=== PATIENT | female | born 1975 | race Two or more races ===

== ENCOUNTER 2017-08-10 15:29 | Emergency (ER) | payer BC, OTHER ==
[2017-08-10 15:34] VITALS: TEMP 98.3; BMI 21.7
--- NOTE | 2017-08-10 15:44 | PDOC ---
*Physical Exam - Vital Signs Last Vital Signs Temp Pulse Resp BP Pulse Ox 98.3 F 76 18 138/70 100 08/10/17 15:30 08/10/17 15:30 08/10/17 15:30 08/10/17 15:30 08/10/17 15:30 Medical Decision Making - Medical Decision Making 08/10/17 15:40 I have performed a brief in-person evaluation of this patient. The patient presents with a chief complaint of: rlq, nausea, and decreased appetite Pertinent physical exam findings: rlq pain, sent by dr. nguyen to r/o appendicitis I have ordered the following: ua, upreg, cbc, comp, lactic acid The patient will proceed to the ED for further evaluation. 08/10/17 15:43 *DC/Admit/Observation/Transfer Diagnosis at time of Disposition: Abdominal pain
[2017-08-10 17:27] LABS: BASOPHIL 0.6 % (0-2.0); EOSINOPHIL 0.9 % (0-4.5); MCH 29.3 pg (25.7-33.7); MCHC 33.5 g/dl (32.0-36.0); MEAN CELL VOLUME 87.6 fl (80-96); MEAN PLT VOLUME 10.8 fl (7.5-11.1); NEUTROPHILS 68.9 % (42.8-82.8); PLATELET COUNT 187 K/MM3 (134-434); RDW 12.5 % (11.6-15.6); WHITE BLOOD COUNT 7.3 K/mm3 (4.0-10.0)
[2017-08-10 17:29] LABS: URINE APPEARANCE CLEAR; URINE BILIRUBIN NEGATIVE (NEGATIVE); URINE BLOOD 1+ (NEGATIVE); URINE COLOR STRAW; URINE GLUCOSE (UA) NEGATIVE (NEGATIVE); URINE KETONE TRACE (NEGATIVE); URINE NITRITE NEGATIVE (NEGATIVE); URINE PROTEIN NEGATIVE (NEGATIVE); URINE UROBILINOGEN NEGATIVE mg/dL (0.2-1.0)
[2017-08-10 17:32] LABS: URINE HYALINE CAST 1 /lpf; URINE MUCUS RARE; URINE RBC <1 /hpf (0-3); URINE WBC 1 /hpf (3-5)
[2017-08-10 17:51] LABS: ALBUMIN 4.1 g/dl (3.4-5.0); ANION GAP 8 (8-16); CALCIUM 9.1 mg/dL (8.5-10.1); CO2 26 mmol/L (21-32); CREATININE 0.7 mg/dL (0.55-1.02); GLUCOSE,RANDOM 97 mg/dL (74-106); SGOT/AST 10 U/L (15-37); SGPT/ALT 17 U/L (12-78)
[2017-08-10 17:53] LABS: ALK PHOS 80 U/L (45-117); BILIRUBIN,TOTAL 0.4 mg/dL (0.2-1.0); TOT PROT 7.6 g/dl (6.4-8.2)
[2017-08-10] MEDS ORDERED: SODIUM CHLORIDE 0.9% 1000 ML INFUS.BAG IV ONE ×2 (18:12→18:13)
[2017-08-10] MEDS ORDERED: ACETAMINOPHEN 1000 MG/100 ML VIAL (NON FORMULARY) IVPB ONE (18:12)
[2017-08-10] MEDS ORDERED: FAMOTIDINE 20 MG/50 ML IVPB 50 ML IVPB ONE ×2 (18:12→18:23)
[2017-08-10] MEDS ORDERED: ONDANSETRON 4 MG/2 ML VIAL IVPUSH ONE (18:12)
--- NOTE | 2017-08-10 18:20 | PDOC ---
History of Present Illness <MassimoenriquetaLilian - Last Filed: 08/10/17 18:23> - General History Source: Patient Exam Limitations: No Limitations - History of Present Illness Initial Comments: 08/10/17 18:24 The patient is a 42 year old female, with a significant past medical history of Hypothyroidism who presents to the emergency department with RLQ abdominal pain. Patient reports sharp RLQ pain, 8/10 in severity, nonradiating with associated nausea and decreased appetite. Patient reports subjective fever and chills. Patient saw her GI for pain and was sent in for further evaluation of appendicitis. Patient denies chest pain, headache or dizziness. She denies vomit , diarrhea or constipation. She denies dysuria, frequency, urgency or hematuria. Patient denies sick contacts or recent travel. Upon evaluation, patients vital signs are within normal limits. Allergies: NKA Past surgical history: None Social history: None GI: Lantin <Terri Partida - Last Filed: 08/10/17 18:24> - General Chief Complaint: Pain Stated Complaint: PCP SENT Time Seen by Provider: 08/10/17 15:32 Past History - Past Medical History COPD: No Thyroid Disease: Yes - Suicide/Smoking/Psychosocial Hx Smoking History: Never smoked <Lilian Vega - Last Filed: 08/10/17 18:23> <Terri Partida - Last Filed: 08/10/17 18:24> - Past Medical History Allergies/Adverse Reactions: Allergies Allergy/AdvReac Type Severity Reaction Status Date / Time No Known Allergies Allergy Verified 08/10/17 15:33 Home Medications: Ambulatory Orders Methimazole 5 mg PO DAILY 08/10/17 Review of Systems - Review of Systems Able to Perform ROS?: Yes Comments:: 08/10/17 18:24 GENERAL/CONSTITUTIONAL: No fever or chills. No weakness. HEAD, EYES, EARS, NOSE AND THROAT: No change in vision. No ear pain or discharge. No sore throat. CARDIOVASCULAR: No chest pain or shortness of breath. RESPIRATORY: No cough, wheezing, or hemoptysis. GASTROINTESTINAL: +RUQ abdominal pain. + nausea. No vomiting, diarrhea or constipation. GENITOURINARY: No dysuria, frequency, or change in urination. MUSCULOSKELETAL: No joint or muscle swelling or pain. No neck or back pain. SKIN: No rash NEUROLOGIC: No headache, vertigo, loss of consciousness, or change in strength/ sensation. ENDOCRINE: No increased thirst. No abnormal weight change. HEMATOLOGIC/LYMPHATIC: No anemia, easy bleeding, or history of blood clots. ALLERGIC/IMMUNOLOGIC: No hives or skin allergy. <Terri Partida - Last Filed: 08/10/17 18:24> *Physical Exam - Vital Signs Last Vital Signs Temp Pulse Resp BP Pulse Ox 98.3 F 76 18 138/70 100 08/10/17 15:30 08/10/17 15:30 08/10/17 15:30 08/10/17 15:30 08/10/17 15:30 <Lilian Vega - Last Filed: 08/10/17 18:23> - Vital Signs Last Vital Signs Temp Pulse Resp BP Pulse Ox 98.3 F 76 18 138/70 100 08/10/17 15:30 08/10/17 15:30 08/10/17 15:30 08/10/17 15:30 08/10/17 15:30 - Physical Exam Comments: 08/10/17 18:24 GENERAL: Awake, alert, and fully oriented, in no acute distress HEAD: No signs of trauma EYES: PERRLA, EOMI, sclera anicteric, conjunctiva clear ENT: Auricles normal inspection, hearing grossly normal, nares patent, oropharynx clear without exudates. Moist mucosa NECK: Normal ROM, supple, no lymphadenopathy, JVD, or masses LUNGS: Breath sounds equal, clear to auscultation bilaterally. No wheezes, and no crackles HEART: Regular rate and rhythm, normal S1 and S2, no murmurs, rubs or gallops ABDOMEN: +RLQ tenderness. +RUQ tenderness. +Rovsings sign positive. Normoactive bowel sounds. No guarding, no rebound. No masses EXTREMITIES: Normal range of motion, no edema. No clubbing or cyanosis. No cords, erythema, or tenderness NEUROLOGICAL: Cranial nerves II through XII grossly intact. Normal speech, normal gait SKIN: Warm, Dry, normal turgor, no rashes or lesions noted. <Jaquan,Terri - Last Filed: 08/10/17 18:24> ED Treatment Course - LABORATORY CBC & Chemistry Diagram: 08/10/17 16:42 08/10/17 16:42 - ADDITIONAL ORDERS Additional order review: Laboratory Results 08/10/17 08/10/17 08/10/17 16:42 16:42 16:42 Sodium 139 Potassium 3.9 Chloride 105 Carbon Dioxide 26 Anion Gap 8 BUN 8 Creatinine 0.7 Creat Clearance w eGFR > 60 Random Glucose 97 Lactic Acid 2.2 H* Calcium 9.1 Total Bilirubin 0.4 AST 10 L ALT 17 Alkaline Phosphatase 80 Total Protein 7.6 Albumin 4.1 Urine Color Straw Urine Appearance Clear Urine pH 6.0 Ur Specific [place] 1.009 Urine Protein Negative Urine Glucose (UA) Negative Urine Ketones Trace H Urine Blood 1+ H Urine Nitrite Negative Urine Bilirubin Negative Urine Urobilinogen Negative Urine RBC <1 Urine WBC 1 Ur Epithelial Cells Rare Hyaline Casts 1 Urine Mucus Rare 08/10/17 16:42 RBC 4.40 MCV 87.6 MCHC 33.5 RDW 12.5 MPV 10.8 Neutrophils % 68.9 Lymphocytes % 22.5 Monocytes % 7.1 Eosinophils % 0.9 Basophils % 0.6 - RADIOLOGY Radiology Studies Ordered: Category Date Time Status ABDOMEN & PELVIS CT WITH CONTR [CT] Stat CT Scan 08/10/17 18:09 Ordered <Lilian Vega - Last Filed: 08/10/17 18:23> - LABORATORY CBC & Chemistry Diagram: 08/10/17 16:42 08/10/17 16:42 - ADDITIONAL ORDERS Additional order review: Laboratory Results 08/10/17 08/10/17 08/10/17 16:42 16:42 16:42 Sodium 139 Potassium 3.9 Chloride 105 Carbon Dioxide 26 Anion Gap 8 BUN 8 Creatinine 0.7 Creat Clearance w eGFR > 60 Random Glucose 97 Lactic Acid 2.2 H* Calcium 9.1 Total Bilirubin 0.4 AST 10 L ALT 17 Alkaline Phosphatase 80 Total Protein 7.6 Albumin 4.1 Urine Color Straw Urine Appearance Clear Urine pH 6.0 Ur Specific [place] 1.009 Urine Protein Negative Urine Glucose (UA) Negative Urine Ketones Trace H Urine Blood 1+ H Urine Nitrite Negative Urine Bilirubin Negative Urine Urobilinogen Negative Urine RBC <1 Urine WBC 1 Ur Epithelial Cells Rare Hyaline Casts 1 Urine Mucus Rare 08/10/17 16:42 RBC 4.40 MCV 87.6 MCHC 33.5 RDW 12.5 MPV 10.8 Neutrophils % 68.9 Lymphocytes % 22.5 Monocytes % 7.1 Eosinophils % 0.9 Basophils % 0.6 - Medications Given in the ED: ED Medications Discontinued Medications Generic Name Dose Route Start Last Admin Trade Name Norman PRN Reason Stop Dose Admin Ondansetron HCl 4 mg 08/10/17 18:12 08/10/17 18:23 Zofran Injection IVPUSH 08/10/17 18:13 4 mg ONCE ONE Administration Sodium Chloride 1,000 ml 08/10/17 18:12 08/10/17 18:21 Normal Saline - IV 08/10/17 18:13 1,000 ml ONCE ONE Administration <Terri Partida - Last Filed: 08/10/17 18:24> Medical Decision Making - Medical Decision Making 08/10/17 18:19 a/p: 42yo female sent by KIKA hazel) for RLQ abd pain -concern for terminal ileitis vs biliary disease vs appendicitis -labs -ct abd/pelvis -pain and nausea control 08/10/17 18:23 pt will be signed out to the oncoming ED physician pending CT abd/pelvis <Lilian Vega - Last Filed: 08/10/17 18:23> *DC/Admit/Observation/Transfer <Lilian Vega - Last Filed: 08/10/17 18:23> - Attestations Scribe Attestion: 08/10/17 18:24 Documentation prepared by Terri Partida, acting as medical laboratory technician for Lilian Vega DO, MD/. <Terri Partida - Last Filed: 08/10/17 18:24> Diagnosis at time of Disposition: Abdominal pain - Referrals Referrals: Michele Oliveira [Primary Care Provider] - - Patient Instructions - Post Discharge Activity
[2017-08-10] MEDS ORDERED: ONDANSETRON 4 MG/2 ML VIAL ONE (18:23)
[2017-08-10 18:37] LABS: INR 1.08 (0.82-1.09); PROTHROMBIN TIME (PATIENT) 12.2 SEC (9.98-11.88)
[2017-08-10 18:39] LABS: ACTIVATED PTT 33.3 SECONDS (26.9-34.4)
[2017-08-10 20:07] LABS: URINE LEUK ESTERASE Negative (NEGATIVE)
[2017-08-10 22:06] LABS: URINE APPEARANCE CLEAR; URINE COLOR YELLOW; URINE GLUCOSE (UA) NEGATIVE (NEGATIVE)
[2017-08-10 22:07] LABS: PH,URINE 6.5 (4.5-8); URINE BILIRUBIN NEGATIVE (NEGATIVE); URINE BLOOD NEGATIVE (NEGATIVE); URINE KETONE TRACE (NEGATIVE); URINE LEUK ESTERASE NEGATIVE (NEGATIVE); URINE NITRITE NEGATIVE (NEGATIVE); URINE PROTEIN NEGATIVE (NEGATIVE); URINE UROBILINOGEN 0.2 (0.2-1.0)
[2017-08-10] MEDS ORDERED: SODIUM CHLORIDE 1,000 ML IV STA (22:45)
[2017-08-10] MEDS ORDERED: KETOROLAC TROMETHAMINE 30 MG/1 ML VIAL IVPUSH ONE (22:46)
[2017-08-10] MEDS ORDERED: KETOROLAC TROMETHAMINE 30 MG/1 ML VIAL ONE (22:46)
--- NOTE | 2017-08-10 23:46 | PDOC ---
*Physical Exam - Vital Signs Last Vital Signs Temp Pulse Resp BP Pulse Ox 98.3 F 76 18 138/70 100 08/10/17 15:30 08/10/17 15:30 08/10/17 15:30 08/10/17 15:30 08/10/17 15:30 ED Treatment Course - LABORATORY CBC & Chemistry Diagram: 08/10/17 16:42 08/10/17 16:42 - ADDITIONAL ORDERS Additional order review: Laboratory Results 08/10/17 08/10/17 08/10/17 22:20 18:15 18:15 PT with INR 12.20 H INR 1.08 PTT (Actin FS) 33.3 Sodium Potassium Chloride Carbon Dioxide Anion Gap BUN Creatinine Creat Clearance w eGFR Random Glucose Lactic Acid 0.7 Calcium Total Bilirubin AST ALT Alkaline Phosphatase Total Protein Albumin Urine Color Urine Appearance Urine pH Ur Specific [place] Urine Protein Urine Glucose (UA) Urine Ketones Urine Blood Urine Nitrite Urine Bilirubin Urine Urobilinogen Ur Leukocyte Esterase Urine RBC Urine WBC Ur Epithelial Cells Hyaline Casts Urine Mucus Urine HCG, Qual Blood Type O POSITIVE Antibody Screen Negative 08/10/17 08/10/17 08/10/17 16:42 16:42 16:42 PT with INR INR PTT (Actin FS) Sodium 139 Potassium 3.9 Chloride 105 Carbon Dioxide 26 Anion Gap 8 BUN 8 Creatinine 0.7 Creat Clearance w eGFR > 60 Random Glucose 97 Lactic Acid 2.2 H* Calcium 9.1 Total Bilirubin 0.4 AST 10 L ALT 17 Alkaline Phosphatase 80 Total Protein 7.6 Albumin 4.1 Urine Color Straw Urine Appearance Clear Urine pH 6.0 Ur Specific [place] 1.009 Urine Protein Negative Urine Glucose (UA) Negative Urine Ketones Trace H Urine Blood 1+ H Urine Nitrite Negative Urine Bilirubin Negative Urine Urobilinogen Negative Ur Leukocyte Esterase Negative Urine RBC <1 Urine WBC 1 Ur Epithelial Cells Rare Hyaline Casts 1 Urine Mucus Rare Urine HCG, Qual Blood Type Antibody Screen 08/10/17 16:42 PT with INR INR PTT (Actin FS) Sodium Potassium Chloride Carbon Dioxide Anion Gap BUN Creatinine Creat Clearance w eGFR Random Glucose Lactic Acid Calcium Total Bilirubin AST ALT Alkaline Phosphatase Total Protein Albumin Urine Color Yellow Urine Appearance Clear Urine pH 6.5 Ur Specific [place] 1.010 Urine Protein Negative Urine Glucose (UA) Negative Urine Ketones Trace H Urine Blood Negative Urine Nitrite Negative Urine Bilirubin Negative Urine Urobilinogen 0.2 Ur Leukocyte Esterase Negative Urine RBC Urine WBC Ur Epithelial Cells Hyaline Casts Urine Mucus Urine HCG, Qual Negative Blood Type Antibody Screen 08/10/17 16:42 RBC 4.40 MCV 87.6 MCHC 33.5 RDW 12.5 MPV 10.8 Neutrophils % 68.9 Lymphocytes % 22.5 Monocytes % 7.1 Eosinophils % 0.9 Basophils % 0.6 - Medications Given in the ED: ED Medications Discontinued Medications Generic Name Dose Route Start Last Admin Trade Name Norman PRN Reason Stop Dose Admin Acetaminophen 1,000 mg 08/10/17 18:12 08/10/17 19:46 Ofirmev Injection - IVPB 08/10/17 18:13 1,000 mg ONCE ONE Administration Famotidine/Sodium Chloride 50 mls @ 100 mls/hr 08/10/17 18:12 08/10/17 18:23 Pepcid 20 Mg Premixed Ivpb - IVPB 08/10/17 18:41 100 mls/hr ONCE ONE Administration Ketorolac Tromethamine 30 mg 08/10/17 22:46 08/10/17 22:50 Toradol Injection - IVPUSH 08/10/17 22:47 30 mg ONCE ONE Administration Ondansetron HCl 4 mg 08/10/17 18:12 08/10/17 18:23 Zofran Injection IVPUSH 08/10/17 18:13 4 mg ONCE ONE Administration Sodium Chloride 1,000 ml 08/10/17 18:12 08/10/17 18:21 Normal Saline - IV 08/10/17 18:13 1,000 ml ONCE ONE Administration Sodium Chloride 1,000 ml 08/10/17 18:13 08/10/17 19:46 Normal Saline - IV 08/10/17 18:14 1,000 ml ONCE ONE Administration *DC/Admit/Observation/Transfer Diagnosis at time of Disposition: Abdominal pain - Discharge Dispostion Disposition: HOME Condition at time of disposition: Admit: No - Referrals Referrals: Michele Oliveira [Primary Care Provider] - Toney Pineda MD [Staff Physician] - - Patient Instructions Printed Discharge Instructions: DI for Abdominal Pain-Adult Additional Instructions: take medications as directed. Follow up with your primary care and GI doctor if symptoms. - Post Discharge Activity Forms/Work/School Notes: Back to Work
[2017-08-10 23:58] VITALS: BP 95/51; PULSE 51
== END 2017-08-10 23:57 | disposition home or self-care (01) ==
LOC: JER 15:29
PROC: 3E033GC Introduction of Other Therapeutic Substance into Peripheral Vein, Percutaneous Approach (ICD-10-PCS; principal; 2017-08-10)
PROC: 3E033NZ Introduction of Analgesics, Hypnotics, Sedatives into Peripheral Vein, Percutaneous Approach (ICD-10-PCS; 2017-08-10)
PROC: 3E0333Z Introduction of Anti-inflammatory into Peripheral Vein, Percutaneous Approach (ICD-10-PCS; 2017-08-10)
PROC: 3E033GC Introduction of Other Therapeutic Substance into Peripheral Vein, Percutaneous Approach (ICD-10-PCS; 2017-08-10)
DX: R10.84 Generalized abdominal pain (principal); E03.9 Hypothyroidism, unspecified
CPT/HCPCS: 36415; 74177-TC; 80053; 81003; 81015; 83605; 84703; 85025; 85610; 85730; 86850; 86900; 86901; 99283-25; Q9967